=== PATIENT | female | born 1960 | race African-American/Black ===

== ENCOUNTER 2019-04-17 11:23 | Emergency (ER) | payer SELFPAY ==
[2019-04-17] MEDS ORDERED: Sodium Chloride 0.9% 1,000 ML ONE (11:59)
[2019-04-17] MEDS ORDERED: Ondansetron PF 4 MG/2 ML Vial ONE (11:59)
[2019-04-17] MEDS ORDERED: Morphine 4 MG/ML VIAL ONE ×2 (11:59→13:23)
[2019-04-17 12:03] LABS: #Basophils 0.1 thou/uL (0.0-0.2); #Lymphocytes 1.3 thou/uL (1.20-3.40); #Monocytes 0.8 thou/uL (0.11-0.59); #Neutrophils 5.4 thou/uL (1.40-6.50); %Basophils 0.8 % (0.0-1.0); %Eosinophils 0.2 % (0.0-10.0); %Lymphocytes 16.7 % (21.0-51.0); %Monocytes 10.2 % (0.0-10.0); %Neutrophils 72.2 % (42.0-75.0); Hemoglobin 16.4 g/dL (12.0-16.0); Mean Corpuscular HGB CONC 31.5 g/dL (32.0-36.0); Mean Corpuscular Hemoglobin 29.2 pg (27.0-31.0); Mean Corpuscular Volume 92.7 fL (78.0-98.0); Mean Platelet Volume 7.9 fL (7.4-10.4); Platelet Count 348 thou/uL (130-400); RBC Distribution Width 13.1 % (11.5-14.5); Red Blood Cell (RBC) Count 5.63 mill/uL (4.20-5.40); White Blood Cell (WBC) Count 7.5 thou/uL (4.8-10.8)
--- NOTE | 2019-04-17 12:18 | RAD ---
EXAM: Single view of the chest HISTORY: Chest pain COMPARISON: None FINDINGS: Single view of the chest shows a normal sized cardiomediastinal silhouette. There is no pastor dence of consolidation, mass, or pleural effusion. The bones are unremarkable. IMPRESSION: No evidence of acute cardiopulmonary disease
[2019-04-17 12:34] LABS: ALT (SGPT) 25 U/L (8-55); AST (SGOT) 26 U/L (5-34); Alkaline Phosphatase 148 U/L (40-110); Anion Gap 21 mmol/L (10-20); BUN (Urea Nitrogen) 19 mg/dL (9.8-20.1); Bilirubin, Total 0.6 mg/dL (0.2-1.2); Calc. Creatinine Clearance 0 mL/min (70-130); Calcium 10.4 mg/dL (7.8-10.44); Carbon Dioxide 28 mmol/L (22-29); Chloride 94 mmol/L (98-107); Estimated GFR-MDRD 34; Globulin 4.5 g/dL (2.4-3.5); Glucose 167 mg/dL (70-105); Potassium 3.9 mmol/L (3.5-5.1); Protein, Total 9.5 g/dL (6.0-8.3); Sodium 139 mmol/L (136-145)
--- NOTE | 2019-04-17 13:03 | CT ---
CT Abdomen Pelvis WO Con: 04/17/2019 11:54 AM HISTORY: Upper abdominal pain in the location of hernia. COMPARISON: None. TECHNIQUE: Multiple contiguous axial images were obtained and a CT of the abdomen and pelvis without IV contrast . Coronal and sagittal reformats were performed. FINDINGS: This examination is limited for the evaluation of solid organs and vascular structures due to the lac k of intravenous contrast. Lower Chest: within normal limits. Abdomen: Liver: within normal limits. Bile Ducts: Normal caliber. Gallbladder: No calcified gallstones. Normal caliber wall. Pancreas: within normal limits. Spleen: within normal limits. Adrenals: within normal limits. Kidneys: within normal limits. Pelvis: Reproductive Organs: Status post hysterectomy. Ureters: within normal limits. Bladder: within normal limits. Bowel: There are dilated proximal small bowel loops and decompressed distal small bowel loops. There is a transition point within one of the patient's ventral hernias. Mesenteric Lymph Nodes: No enlarged mesenteric lymph nodes. Peritoneum: No ascites or free air, no fluid collection. Vessels: Normal caliber aorta Retroperitoneum: within normal limits. Abdominal Wall: There are multiple ventral hernias. In the high epigastric region, there is a 2.1 cm fat-containing hernia. Slightly lower and above the umbilicus, there is a 2.7 cm hernia containing fat and small bowel. A 1.1 cm hernia is seen immediately adjacent to the umbilicus. Just below the um bilicus, there is a small hernia containing soft tissue density structures that do not appear to resemble bowel and are nonspecific. Bones: Degenerative changes in the spine. IMPRESSION: Multiple ventral hernias. One of these hernias contains a loop of small bowel with a transition point within this small bowel concerning for bowel obstruction.
[2019-04-17] MEDS ORDERED: Benzocaine 20% Spray 60 ML CAN ONE (13:30)
[2019-04-17] MEDS ORDERED: Lidocaine Viscous Sol 2% 15 ml UD Cup ONE (13:30)
[2019-04-17] MEDS ORDERED: Oxymetazoline HCl 0.05% (30 ML BOT) ONE (13:30)
== END 2019-04-17 14:18 | disposition short-term general hospital (02) ==
LOC: NAV ERS 11:23
DX: K56.609 Unspecified intestinal obstruction, unspecified as to partial versus complete obstruction (principal); R11.2 Nausea with vomiting, unspecified; I10 Essential (primary) hypertension; E11.9 Type 2 diabetes mellitus without complications; E03.9 Hypothyroidism, unspecified; F41.9 Anxiety disorder, unspecified; F32.9 Major depressive disorder, single episode, unspecified; Z79.84 Long term (current) use of oral hypoglycemic drugs; Z79.899 Other long term (current) drug therapy
CPT/HCPCS: 71045; 74176; 80053; 83605; 85025; 93005; 96361; 96374; 96375; 96376; J2270; J2405; J7050

== ENCOUNTER 2019-11-30 16:43 | Emergency (ER) | payer SELFPAY ==
[2019-11-30] MEDS ORDERED: Acetaminophen 500 MG TAB ONE (17:03)
[2019-11-30 17:39] LABS: Hemoglobin 12.3 g/dL (12.0-16.0); Mean Corpuscular HGB CONC 30.9 g/dL (32.0-36.0); Mean Corpuscular Hemoglobin 29.6 pg (27.0-31.0); Mean Corpuscular Volume 95.8 fL (78.0-98.0); Mean Platelet Volume 7.3 fL (7.4-10.4); Platelet Count 352 thou/uL (130-400); RBC Distribution Width 12.3 % (11.5-14.5); Red Blood Cell (RBC) Count 4.17 mill/uL (4.20-5.40); White Blood Cell (WBC) Count 15.7 thou/uL (4.8-10.8)
[2019-11-30] MEDS ORDERED: Piperacillin/Tazobactam 3.375 GM VIAL ONE (17:52)
[2019-11-30] MEDS ORDERED: Sodium Chloride 0.9% 100 ML ONE (17:52)
[2019-11-30 17:54] LABS: ALT (SGPT) 22 U/L (8-55); AST (SGOT) 24 U/L (5-34); Albumin 3.6 g/dL (3.5-5.0); Alkaline Phosphatase 102 U/L (40-110); Anion Gap 18 mmol/L (10-20); BUN (Urea Nitrogen) 17 mg/dL (9.8-20.1); Bilirubin, Total 0.4 mg/dL (0.2-1.2); Calc. Creatinine Clearance 0 mL/min (70-130); Calcium 9.4 mg/dL (7.8-10.44); Carbon Dioxide 25 mmol/L (22-29); Chloride 95 mmol/L (98-107); Estimated GFR-MDRD 54; Globulin 4.2 g/dL (2.4-3.5); Glucose 186 mg/dL (70-105); Lipase 11 U/L (8-78); Potassium 3.4 mmol/L (3.5-5.1); Protein, Total 7.8 g/dL (6.0-8.3); Sodium 135 mmol/L (136-145)
[2019-11-30] MEDS ORDERED: Sodium Chloride 0.9% 1,000 ML ONE (18:27)
[2019-11-30 18:50] LABS: Band 11 % (5-11); Lymphocytes 16 % (21-51); MDiff Complete? YES; Monocytes 11 % (0-10); Neutrophil 62 % (42-75)
--- NOTE | 2019-11-30 18:58 | RAD ---
PA AND LATERAL CHEST: 11/30/19 HISTORY: Cough and fever. Heart size is within normal limits. There are atherosclerotic changes of the aorta. The lungs are yana ar of infiltrates. Arthritic changes in the spine. IMPRESSION: No active intrathoracic disease. POS: OFF
--- NOTE | 2019-11-30 19:25 | CT ---
CT ABDOMEN AND PELVIS PERFORMED WITH INTRAVENOUS CONTRAST ENHANCEMENT: 11/30/19 HISTORY: Abdominal pain and redness and swelling starting eight days ago. History of hernia surgery in March . COMPARISON: A 04/17/19 CT study. The lung bases are clear of any infiltrative process. The liver, spleen, pancreas and gallbladder regions appear unremarkable. Right and left adrenal glands and right and left kidneys are normal in size. No significant periaorti c, mesenteric or pelvic lymphadenopathy. The bladder is incompletely distended. In the region of the previous ventral hernia repair, there is now a large subcutaneous air collection which does have a connection into the abdominal cavity with some small foci of air which are trapped within some fat in this region. This does not appear to be a recurrent hernia of the bowel loop. It appears to be air which is arising from other cause. I do not see any signs of any fluid collection associated with this. There is no drainable collection present. IMPRESSION: Large air collection of the subcutaneous fat in the midline. This is in the region of the patient's previous ventral hernia. This air collection has connection to some small foci of air which are withi n the omental fat directly adjacent to this area. There is no free air in the abdomen. This does not appear to represent a reherniation of a bowel loop. The air may be coming from some type of fistulous connection to an adjacent small bowel loop. There is no obstruction. Findings discussed with Dr. Peterson. POS: OFF
== END 2019-11-30 18:40 | disposition short-term general hospital (02) ==
LOC: NAV ERS 16:43
DX: K43.9 Ventral hernia without obstruction or gangrene (principal); R50.9 Fever, unspecified; E11.9 Type 2 diabetes mellitus without complications; E03.9 Hypothyroidism, unspecified; I10 Essential (primary) hypertension; F32.9 Major depressive disorder, single episode, unspecified; Z79.82 Long term (current) use of aspirin; Z79.899 Other long term (current) drug therapy
CPT/HCPCS: 71046; 74177; 80053; 83605; 83690; 85025; 87040; 96361; 96374; J2543; J3490; J7050

== ENCOUNTER 2022-08-06 14:26 | Outpatient (CLI) | payer MEDICARE | END 2022-08-06 14:27 | disposition home or self-care (01) | LOC: NAV RAD 14:26 | PROVIDERS: ATTEND Nurse Practitioner Family | DX: M17.0 Bilateral primary osteoarthritis of knee (principal) ==

== ENCOUNTER 2024-05-26 13:35 | Emergency (ER) | payer MEDICARE ==
[2024-05-26] MEDS ORDERED: Cephalexin 500 MG CAP ONE (15:15)
== END 2024-05-26 15:23 | disposition home or self-care (01) ==
LOC: NAV ERS 13:35
DX: L02.216 Cutaneous abscess of umbilicus (principal); E11.9 Type 2 diabetes mellitus without complications; I10 Essential (primary) hypertension
CPT/HCPCS: 87070; 87077; 87205; 99283